=== PATIENT | male | born 1945 | race Caucasian/White ===

== ENCOUNTER 2024-04-04 22:27 | Inpatient (IN) | payer OTHER, MEDICARE, MEDICAID ==
[~2024-04-04] VITALS: Ht 182.9 cm; Wt 100.1 kg
[~2024-04-04 22:27] MED LIST: ALBU2.5V7 NEB; ASPI81TA52 PO; ATOR20TA PO; FLO0.4C PO; LISI20TA28 PO; METO-395 PO
[2024-04-04] MEDS: CefTRIAXone/D5W-Rocephin 1gm 50 ML IV ONE (22:47)
[2024-04-04] MEDS: normal saline 1000ml 1,000 ML IV ONE (22:48)
[2024-04-04 22:55] LABS: BASOPHILS # (AUTO) 0.1 X10'3 (0-0.2); BASOPHILS % (AUTO) 0.2 % (0-1); EOSINOPHILS % (AUTO) 0 % (0-6); HEMATOCRIT 45.2 % (42.0-52.0); HEMOGLOBIN 15.4 g/dl (14.0-17.9); LYMPHOCYTES # (AUTO) 1.4 X10'3 (1.1-4.8); LYMPHOCYTES % (AUTO) 6.5 % (21-51); MEAN CORPUSCULAR HEMOGLOBIN 31.8 PG (27.0-31.0); MEAN CORPUSCULAR HGB CONC 34.2 g/dL (33.0-36.5); MEAN CORPUSCULAR VOLUME 93.1 FL (78-98); MEAN PLATELET VOLUME 8.7 FL (7.4-10.4); MONOCYTES # (AUTO) 2.2 X10'3 (0-0.9); MONOCYTES % (AUTO) 10.2 % (2-12); NEUTROPHILS % (AUTO) 83.1 % (42-75); PLATELET COUNT 299 X10'3 (140-440); RED BLOOD COUNT 4.85 X10'6 (4.70-6.10); RED CELL DISTRIBUTION WIDTH 14.2 % (11.5-14.5); WHITE BLOOD COUNT 21.6 X10'3 (4.5-11.0)
[2024-04-04 23:07] LABS: ALANINE AMINOTRANSFERASE 12 U/L (12-78); ALBUMIN 3.1 G/DL (3.4-5.0); ALBUMIN/GLOBULIN RATIO 0.8 (1.1-1.5); ALKALINE PHOSPHATASE 100 IU/L (46-116); ANION GAP 7 (8-16); ASPARTATE AMINO TRANSFERASE 8 U/L (10-37); BILIRUBIN,TOTAL 1.1 MG/DL (0.1-1.0); BLOOD UREA NITROGEN 29 MG/DL (7-18); BUN/CREATININE RATIO 19.3 (10.0-20.0); CALCIUM 9.5 MG/DL (8.5-10.1); CHLORIDE 99 MMOL/L (99-107); GLUCOSE 151 MG/DL (70-104); POTASSIUM 3.8 MMOL/L (3.5-5.1); SODIUM 136 MMOL/L (135-145); TOTAL CARBON DIOXIDE 30.4 MMOL/L (24-32); TOTAL PROTEIN 7.2 G/DL (6.4-8.2); eCRCL 45 ML/MIN; eGFR 45 ML/MIN
[2024-04-04 23:23] LABS: BILIRUBIN,URINE NEGATIVE (Neg); CLARITY,URINE CLOUDY (Clear); COLOR,URINE YELLOW (Yellow); GLUCOSE, URINE NEGATIVE (Neg); KETONES,URINE TRACE mg/dl (Neg); LEUKOCYTE ESTERASE ,URINE LARGE (Neg); NITRITES, URINE NEGATIVE (Neg); OCCULT BLOOD,URINE TRACE-INTACT (Neg); PROTEIN,URINE 100 mg/dl (Neg); UROBILINOGEN,URINE 0.2 E.U/dL (0.2-1.0)
[2024-04-04 23:34] LABS: UA COLLECTION TYPE FOLEY CATH
[2024-04-04 23:37] LABS: BACTERIA,URINE 4+ /HPF (Neg); RBC,URINE 0-2 /HPF (0-2); SQUAMOUS EPITHELIAL CELL,UR FEW /LPF (FEW); WBC,URINE 50-100 /HPF (0-4)
[2024-04-05] MEDS: normal saline 1000ml 1,000 ML IV ONE (00:04)
[2024-04-05] MEDS: acetaminophen 325mg tablet PO ONE (00:30)
[2024-04-05] MEDS ORDERED: potassium Cl 40MEQ/1/2NS 520ml 520 ML IV PRN (00:35)
[2024-04-05] MEDS ORDERED: magnesium hydroxide 30ml (MOM) UD suspension PO PRN (00:35)
[2024-04-05] MEDS ORDERED: potassium Cl 20 mEq SR tablet PO PRN (00:35)
[2024-04-05] MEDS ORDERED: magnesium sulf-water 4G/100mL 100 ML IV PRN (00:35)
[2024-04-05] MEDS ORDERED: magnesium sulf-water 2g/50mL 50 ML IV PRN (00:35)
[2024-04-05] MEDS ORDERED: ondansetron/PF 4mg/2ml inj IV PRN (00:35)
[2024-04-05] MEDS ORDERED: dextrose 50%-water 50ml dispensing syringe IV PRN ×2 (01:10)
[2024-04-05] MEDS ORDERED: DEXTROSE 15 GM of carb/4 tabs (each vial/BOTTLE has 4 tablets) PO PRN ×2 (01:10)
[2024-04-05] MEDS ORDERED: glucagon, human recombinant 1mg kit SUBCUT PRN (01:10)
[2024-04-05] MEDS: tamsulosin 0.4mg capsule PO SCH (01:13)
[2024-04-05] MEDS: normal saline 1000ml 1,000 ML IV SCH (01:14)
[2024-04-05] MEDS ORDERED: acetaminophen 325mg tablet PO PRN (01:15)
[2024-04-05 02:56] LABS: URINE AMPHETAMINE SCREEN NEGATIVE (Neg); URINE BARBITUATE SCREEN NEGATIVE (Neg); URINE BENZODIAZEPINES SCREEN NEGATIVE (Neg); URINE CANNABINOID SCREEN NEGATIVE (Neg); URINE COCAINE SCREEN NEGATIVE (Neg); URINE METHADONE SCREEN NEGATIVE (Neg); URINE OPIATE SCREEN NEGATIVE (Neg); URINE PHENCYCLIDINE SCREEN NEGATIVE (Neg)
[2024-04-05 03:44] LABS: MAGNESIUM 2.5 MG/DL (1.5-2.4)
[2024-04-05 03:48] LABS: APTT 27 SECONDS (22-32); INR 1.1 INR; PROTHROMBIN TIME 11.6 SECONDS (9.0-12.0)
[2024-04-05 04:04] LABS: HEMOGLOBIN A1C 6.3 % (4.5-6.2)
[2024-04-05] MEDS: INSULIN LISPRO 100 UNIT/ML INSULN.PEN MULTI-DOSE SQ SCH (07:00)
[2024-04-05] MEDS: acetaminophen 325mg tablet PO PRN (07:52)
[2024-04-05] MEDS: heparin, porcine 5000 units/ml vial SQ SCH (07:56)
[2024-04-05] MEDS: K and/or MAG REPLACEMENT MC SCH (07:56)
[2024-04-05] MEDS: docusate sod 100mg capsule PO SCH (07:57)
[2024-04-05] MEDS: normal saline 500ml IV soln 1,000 ML IV ONE (09:00)
[2024-04-05 11:09] LABS: BILIRUBIN,URINE NEGATIVE (Neg); CLARITY,URINE CLOUDY (Clear); COLOR,URINE YELLOW (Yellow); GLUCOSE, URINE NEGATIVE (Neg); KETONES,URINE NEGATIVE (Neg); LEUKOCYTE ESTERASE ,URINE LARGE (Neg); NITRITES, URINE POSITIVE (Neg); OCCULT BLOOD,URINE LARGE (Neg); PH,URINE 6.5 (4.8-8.0); PROTEIN,URINE 100 mg/dl (Neg); UROBILINOGEN,URINE 0.2 E.U/dL (0.2-1.0)
[2024-04-05 11:22] LABS: UA COLLECTION TYPE STRAIGHT CATH
[2024-04-05 11:26] LABS: BACTERIA,URINE 3+ /HPF (Neg); WBC,URINE TNTC /HPF (0-4)
[2024-04-05 11:27] LABS: MUCUS STRANDS NONE SEEN /LPF (Neg); SQUAMOUS EPITHELIAL CELL,UR NONE SEEN /LPF (FEW); WBC CLUMPS,URINE MODERATE /HPF (NEGATIVE)
[2024-04-05 11:37] LABS: CREATINE KINASE 157 U/L (39-308); LIPASE 22 U/L (16-77); PHOSPHORUS 2.9 MG/DL (2.3-4.5); PRO BRAIN NATRIURETIC PEPTIDE 1171 PG/ML (0-450); THYROID STIMULATING HORMONE 0.88 ulU/ml (0.34-4.50)
[2024-04-05 12:06] LABS: OSMOLALITY 294 MOSM/K (280-300)
[2024-04-05] MEDS: ringers solution, lacted 1,000 ML IV ONE (12:11)
[2024-04-05 16:15] VITALS: BP 148/77; PULSE 129; RESP 24; TEMP 98.8; O2SAT 95
[2024-04-05 18:00] VITALS: BP 146/52; PULSE 124; RESP 22; TEMP 97.8; O2SAT 99
[2024-04-05 20:00] VITALS: RESP 22; O2SAT 99
[2024-04-05 22:00] VITALS: BP 148/86; PULSE 139; RESP 20; TEMP 99.3; O2SAT 85
[2024-04-05] MEDS: CefTRIAXone/D5W-Rocephin 1gm 50 ML IV SCH (22:10)
[2024-04-06] VITALS (7 sets, daily range): BP systolic 103–150; BP diastolic 63–84; PULSE 74–127; RESP 16–24; TEMP 98.4–100.1; O2SAT 81–97
[2024-04-06 07:12] LABS: BASOPHILS % (AUTO) 0.4 % (0-1); EOSINOPHILS # (AUTO) 0.1 X10'3 (0-0.9); EOSINOPHILS % (AUTO) 0.6 % (0-6); HEMATOCRIT 35.1 % (42.0-52.0); HEMOGLOBIN 11.9 g/dl (14.0-17.9); LYMPHOCYTES # (AUTO) 1.2 X10'3 (1.1-4.8); LYMPHOCYTES % (AUTO) 10.7 % (21-51); MEAN CORPUSCULAR HEMOGLOBIN 31.9 PG (27.0-31.0); MEAN CORPUSCULAR HGB CONC 33.9 g/dL (33.0-36.5); MEAN CORPUSCULAR VOLUME 93.9 FL (78-98); MEAN PLATELET VOLUME 8.8 FL (7.4-10.4); MONOCYTES % (AUTO) 9.3 % (2-12); NEUTROPHILS # (AUTO) 8.5 X10'3 (1.8-7.7); PLATELET COUNT 172 X10'3 (140-440); RED BLOOD COUNT 3.74 X10'6 (4.70-6.10); RED CELL DISTRIBUTION WIDTH 14.1 % (11.5-14.5); WHITE BLOOD COUNT 10.8 X10'3 (4.5-11.0)
[2024-04-06 08:22] LABS: ALANINE AMINOTRANSFERASE 12 U/L (12-78); ALBUMIN 2.4 G/DL (3.4-5.0); ALBUMIN/GLOBULIN RATIO 0.7 (1.1-1.5); ALKALINE PHOSPHATASE 72 IU/L (46-116); ANION GAP 6 (8-16); ASPARTATE AMINO TRANSFERASE 15 U/L (10-37); BILIRUBIN,TOTAL 0.4 MG/DL (0.1-1.0); BLOOD UREA NITROGEN 19 MG/DL (7-18); BUN/CREATININE RATIO 20.9 (10.0-20.0); CALCIUM 8.5 MG/DL (8.5-10.1); CHLORIDE 107 MMOL/L (99-107); CREATININE 0.91 MG/DL (0.60-1.10); GLUCOSE 107 MG/DL (70-104); MAGNESIUM 1.9 MG/DL (1.5-2.4); POTASSIUM 3.4 MMOL/L (3.5-5.1); SODIUM 141 MMOL/L (135-145); TOTAL CARBON DIOXIDE 27.6 MMOL/L (24-32); TOTAL PROTEIN 5.9 G/DL (6.4-8.2); eCRCL 73 ML/MIN; eGFR 81 ML/MIN
[2024-04-06] MEDS: potassium Cl 20 mEq SR tablet PO PRN (10:38)
[2024-04-06] MEDS: normal saline 1000ml 1,000 ML IV ONE (13:35)
[2024-04-06] MEDS: CefTRIAXone/D5W-Rocephin 1gm 50 ML IV SCH (13:58)
[2024-04-07] MEDS: LORazepam 1 MG tablet PO PRN (00:29)
[2024-04-07 06:00] VITALS: BP 121/63; PULSE 130; RESP 22; TEMP 97.2; O2SAT 88
[2024-04-07 06:46] LABS: BASOPHILS % (AUTO) 0.6 % (0-1); EOSINOPHILS # (AUTO) 0.1 X10'3 (0-0.9); EOSINOPHILS % (AUTO) 0.9 % (0-6); HEMATOCRIT 35.5 % (42.0-52.0); HEMOGLOBIN 12.1 g/dl (14.0-17.9); LYMPHOCYTES # (AUTO) 0.8 X10'3 (1.1-4.8); LYMPHOCYTES % (AUTO) 10.3 % (21-51); MEAN CORPUSCULAR HEMOGLOBIN 32.2 PG (27.0-31.0); MEAN CORPUSCULAR HGB CONC 34.2 g/dL (33.0-36.5); MEAN CORPUSCULAR VOLUME 94.2 FL (78-98); MEAN PLATELET VOLUME 8.7 FL (7.4-10.4); MONOCYTES % (AUTO) 12.9 % (2-12); NEUTROPHILS % (AUTO) 75.3 % (42-75); PLATELET COUNT 187 X10'3 (140-440); RED BLOOD COUNT 3.77 X10'6 (4.70-6.10); RED CELL DISTRIBUTION WIDTH 14.3 % (11.5-14.5)
[2024-04-07 07:18] LABS: ALANINE AMINOTRANSFERASE 25 U/L (12-78); ALBUMIN 2.3 G/DL (3.4-5.0); ALBUMIN/GLOBULIN RATIO 0.6 (1.1-1.5); ALKALINE PHOSPHATASE 72 IU/L (46-116); ANION GAP 11 (8-16); ASPARTATE AMINO TRANSFERASE 25 U/L (10-37); BILIRUBIN,TOTAL 0.3 MG/DL (0.1-1.0); BLOOD UREA NITROGEN 14 MG/DL (7-18); BUN/CREATININE RATIO 18.7 (10.0-20.0); CALCIUM 8.7 MG/DL (8.5-10.1); CHLORIDE 104 MMOL/L (99-107); CREATININE 0.75 MG/DL (0.60-1.10); GLUCOSE 126 MG/DL (70-104); MAGNESIUM 1.9 MG/DL (1.5-2.4); POTASSIUM 4.1 MMOL/L (3.5-5.1); SODIUM 140 MMOL/L (135-145); eCRCL 89 ML/MIN; eGFR > 90 ML/MIN
[2024-04-07] MEDS: aspirin 81mg, enteric-coated 1 TAB TABLET.DR PO SCH (09:10)
[2024-04-07] MEDS: atorvastatin 20mg tablet PO SCH (09:10)
[2024-04-07] MEDS: lisinopril 20mg tablet PO SCH (09:10)
[2024-04-07 10:00] VITALS: BP 145/82; PULSE 125; RESP 18; TEMP 98.2; O2SAT 91
[2024-04-07 16:13] LABS: D-DIMER 1.82 MG/L FEU (0-0.50)
[2024-04-07] MEDS: ringers solution, lacted 1,000 ML IV ONE (16:54)
[2024-04-07 18:30] VITALS: BP 116/66; PULSE 101; RESP 16; TEMP 98; O2SAT 98
[2024-04-08 06:00] VITALS: BP 125/74; PULSE 109; RESP 16; TEMP 97.3; O2SAT 97
[2024-04-08 06:30] LABS: BASOPHILS # (AUTO) 0.1 X10'3 (0-0.2); BASOPHILS % (AUTO) 0.8 % (0-1); EOSINOPHILS # (AUTO) 0.3 X10'3 (0-0.9); EOSINOPHILS % (AUTO) 3.9 % (0-6); HEMOGLOBIN 11.4 g/dl (14.0-17.9); LYMPHOCYTES # (AUTO) 1.1 X10'3 (1.1-4.8); LYMPHOCYTES % (AUTO) 14.5 % (21-51); MEAN CORPUSCULAR HEMOGLOBIN 31.7 PG (27.0-31.0); MEAN CORPUSCULAR HGB CONC 33.6 g/dL (33.0-36.5); MEAN CORPUSCULAR VOLUME 94.4 FL (78-98); MEAN PLATELET VOLUME 8.5 FL (7.4-10.4); MONOCYTES # (AUTO) 0.9 X10'3 (0-0.9); MONOCYTES % (AUTO) 12.8 % (2-12); PLATELET COUNT 190 X10'3 (140-440); RED CELL DISTRIBUTION WIDTH 13.7 % (11.5-14.5); WHITE BLOOD COUNT 7.3 X10'3 (4.5-11.0)
[2024-04-08 06:43] LABS: ALANINE AMINOTRANSFERASE 40 U/L (12-78); ALBUMIN 2.2 G/DL (3.4-5.0); ALBUMIN/GLOBULIN RATIO 0.6 (1.1-1.5); ALKALINE PHOSPHATASE 71 IU/L (46-116); ANION GAP 2 (8-16); ASPARTATE AMINO TRANSFERASE 37 U/L (10-37); BILIRUBIN,TOTAL 0.3 MG/DL (0.1-1.0); BLOOD UREA NITROGEN 15 MG/DL (7-18); BUN/CREATININE RATIO 22.1 (10.0-20.0); CALCIUM 8.5 MG/DL (8.5-10.1); CHLORIDE 105 MMOL/L (99-107); CREATININE 0.68 MG/DL (0.60-1.10); GLUCOSE 117 MG/DL (70-104); MAGNESIUM 1.8 MG/DL (1.5-2.4); POTASSIUM 3.9 MMOL/L (3.5-5.1); SODIUM 139 MMOL/L (135-145); TOTAL CARBON DIOXIDE 31.8 MMOL/L (24-32); TOTAL PROTEIN 5.8 G/DL (6.4-8.2); eCRCL 98 ML/MIN; eGFR > 90 ML/MIN
[2024-04-08 08:01] VITALS: RESP 18
[2024-04-08 11:00] VITALS: BP 108/59; PULSE 111; RESP 18; TEMP 98.1; O2SAT 90
[2024-04-08 18:00] VITALS: BP 102/58; PULSE 115; RESP 24; TEMP 97.9; O2SAT 91
[2024-04-08 20:00] VITALS: RESP 24; O2SAT 91
[2024-04-08 22:00] VITALS: BP 127/72; PULSE 124; RESP 20; TEMP 98.4; O2SAT 90
[2024-04-09 05:59] LABS: BASOPHILS # (AUTO) 0.1 X10'3 (0-0.2); BASOPHILS % (AUTO) 0.6 % (0-1); EOSINOPHILS # (AUTO) 0.2 X10'3 (0-0.9); EOSINOPHILS % (AUTO) 2.4 % (0-6); LYMPHOCYTES # (AUTO) 1.3 X10'3 (1.1-4.8); LYMPHOCYTES % (AUTO) 16.2 % (21-51); MEAN CORPUSCULAR HGB CONC 34.2 g/dL (33.0-36.5); MEAN CORPUSCULAR VOLUME 93.6 FL (78-98); MEAN PLATELET VOLUME 8.5 FL (7.4-10.4); MONOCYTES # (AUTO) 1.1 X10'3 (0-0.9); MONOCYTES % (AUTO) 13.2 % (2-12); NEUTROPHILS # (AUTO) 5.5 X10'3 (1.8-7.7); NEUTROPHILS % (AUTO) 67.6 % (42-75); PLATELET COUNT 197 X10'3 (140-440); RED BLOOD COUNT 3.74 X10'6 (4.70-6.10); RED CELL DISTRIBUTION WIDTH 13.8 % (11.5-14.5); WHITE BLOOD COUNT 8.2 X10'3 (4.5-11.0)
[2024-04-09 06:00] VITALS: BP 114/63; PULSE 109; RESP 18; TEMP 97.5; O2SAT 90
[2024-04-09 06:15] LABS: ALBUMIN 2.4 G/DL (3.4-5.0); ALBUMIN/GLOBULIN RATIO 0.7 (1.1-1.5); ANION GAP 3 (8-16); ASPARTATE AMINO TRANSFERASE 34 U/L (10-37); BILIRUBIN,TOTAL 0.3 MG/DL (0.1-1.0); BLOOD UREA NITROGEN 14 MG/DL (7-18); BUN/CREATININE RATIO 17.1 (10.0-20.0); CHLORIDE 105 MMOL/L (99-107); CREATININE 0.82 MG/DL (0.60-1.10); GLUCOSE 138 MG/DL (70-104); MAGNESIUM 1.8 MG/DL (1.5-2.4); POTASSIUM 3.8 MMOL/L (3.5-5.1); SODIUM 140 MMOL/L (135-145); TOTAL CARBON DIOXIDE 32.2 MMOL/L (24-32); eCRCL 81 ML/MIN; eGFR > 90 ML/MIN
[2024-04-09 06:16] LABS: ALANINE AMINOTRANSFERASE 59 U/L (12-78); ALKALINE PHOSPHATASE 80 IU/L (46-116)
[2024-04-09 08:00] VITALS: RESP 18; O2SAT 90
[2024-04-09 18:00] VITALS: BP 114/70; PULSE 100; RESP 23; TEMP 97.1; O2SAT 91
[2024-04-09] MEDS: carVEDilol 3.125mg tablet PO SCH (21:51)
[2024-04-09 22:00] VITALS: BP 139/66; PULSE 110; RESP 18; TEMP 98.5; O2SAT 90
[2024-04-10 06:00] VITALS: BP 141/88; PULSE 110; RESP 18; TEMP 98; O2SAT 90
[2024-04-10 06:31] LABS: BASOPHILS # (AUTO) 0.1 X10'3 (0-0.2); BASOPHILS % (AUTO) 0.8 % (0-1); EOSINOPHILS # (AUTO) 0.4 X10'3 (0-0.9); EOSINOPHILS % (AUTO) 4.4 % (0-6); HEMATOCRIT 37.8 % (42.0-52.0); HEMOGLOBIN 12.7 g/dl (14.0-17.9); LYMPHOCYTES # (AUTO) 1.4 X10'3 (1.1-4.8); LYMPHOCYTES % (AUTO) 14.2 % (21-51); MEAN CORPUSCULAR HEMOGLOBIN 31.8 PG (27.0-31.0); MEAN CORPUSCULAR HGB CONC 33.7 g/dL (33.0-36.5); MEAN CORPUSCULAR VOLUME 94.2 FL (78-98); MEAN PLATELET VOLUME 8.7 FL (7.4-10.4); MONOCYTES # (AUTO) 1.1 X10'3 (0-0.9); MONOCYTES % (AUTO) 11.2 % (2-12); NEUTROPHILS # (AUTO) 6.7 X10'3 (1.8-7.7); NEUTROPHILS % (AUTO) 69.4 % (42-75); PLATELET COUNT 256 X10'3 (140-440); RED BLOOD COUNT 4.01 X10'6 (4.70-6.10); RED CELL DISTRIBUTION WIDTH 14.1 % (11.5-14.5); WHITE BLOOD COUNT 9.6 X10'3 (4.5-11.0)
[2024-04-10 06:45] LABS: ALANINE AMINOTRANSFERASE 55 U/L (12-78); ALBUMIN 2.6 G/DL (3.4-5.0); ALBUMIN/GLOBULIN RATIO 0.7 (1.1-1.5); ALKALINE PHOSPHATASE 98 IU/L (46-116); ANION GAP 5 (8-16); ASPARTATE AMINO TRANSFERASE 20 U/L (10-37); BILIRUBIN,TOTAL 0.2 MG/DL (0.1-1.0); BLOOD UREA NITROGEN 12 MG/DL (7-18); BUN/CREATININE RATIO 17.4 (10.0-20.0); CALCIUM 9.3 MG/DL (8.5-10.1); CHLORIDE 105 MMOL/L (99-107); CREATININE 0.69 MG/DL (0.60-1.10); GLUCOSE 134 MG/DL (70-104); POTASSIUM 3.5 MMOL/L (3.5-5.1); SODIUM 144 MMOL/L (135-145); TOTAL CARBON DIOXIDE 33.9 MMOL/L (24-32); TOTAL PROTEIN 6.3 G/DL (6.4-8.2); eCRCL 97 ML/MIN; eGFR > 90 ML/MIN
[2024-04-10] MEDS ORDERED: CARV-164 PO (07:16)
[2024-04-10] MEDS ORDERED: CIPR-202 PO (07:16)
[2024-04-10 08:00] VITALS: RESP 18; O2SAT 90
[2024-04-10] MEDS: carVEDilol 3.125mg tablet PO STA ×2 (08:08→10:37)
[2024-04-10 10:00] VITALS: BP 115/71; PULSE 112; RESP 17; TEMP 98.7; O2SAT 90
[2024-04-10 10:30] VITALS: BP 106/66; PULSE 109; RESP 18; O2SAT 92
[2024-04-11] MEDS ORDERED: FLO0.4C PO (09:27)
== END 2024-04-10 15:30 | DRG 698 ==
LOC: ER 22:27 → MERGE 04-05 00:35 → ED HOLD 04-05 00:35 → ORTHO 4S 04-05 16:15
PROVIDERS: ADMIT Internal Medicine Critical Care Medicine; ATTEND Family Medicine
PROC: BW251ZZ Computerized Tomography (CT Scan) of Chest, Abdomen and Pelvis using Low Osmolar Contrast (ICD-10-PCS; principal; 2024-04-05)
DX: T83.518A Infection and inflammatory reaction due to other urinary catheter, initial encounter (principal); A41.9 Sepsis, unspecified organism; G93.41 Metabolic encephalopathy; N17.9 Acute kidney failure, unspecified; N13.6 Pyonephrosis; E11.22 Type 2 diabetes mellitus with diabetic chronic kidney disease; I12.9 Hypertensive chronic kidney disease with stage 1 through stage 4 chronic kidney disease, or unspecified chronic kidney disease; N18.9 Chronic kidney disease, unspecified; J44.9 Chronic obstructive pulmonary disease, unspecified; N40.0 Benign prostatic hyperplasia without lower urinary tract symptoms; I25.10 Atherosclerotic heart disease of native coronary artery without angina pectoris; E86.0 Dehydration; Y83.8 Other surgical procedures as the cause of abnormal reaction of the patient, or of later complication, without mention of misadventure at the time of the procedure; Y92.89 Other specified places as the place of occurrence of the external cause; Z79.82 Long term (current) use of aspirin; Z79.899 Other long term (current) drug therapy; I25.2 Old myocardial infarction; Z99.81 Dependence on supplemental oxygen
CPT/HCPCS: 36415; 71045; 71250; 74176; 76700; 76857; 80053; 80305; 81001; 82550; 82948; 83036; 83605; 83690; 83735; 83880; 83930; 84100; 84132; 84145; 84443; 84484; 85025; 85379; 85610; 85730; 87040; 87077; 87081; 87088; 87186; 93005; 97110; 97116; 97161; 97530; 99291; A4314; A4620; A5200; A6258; A6449; G0378; J0696; J1644; J1815; J7030; J7040; J7120

== ENCOUNTER 2024-04-17 08:30 | Inpatient (IN) | payer OTHER, MEDICARE, MEDICAID ==
[~2024-04-17] VITALS: Ht 180.3 cm; Wt 98.0 kg
[~2024-04-17 08:30] MED LIST changes: -ALBU2.5V7 NEB; +CARV-164 PO; +LEVO-65 PO; +LISI10TA27 PO; -LISI20TA28 PO; -METO-395 PO; +PRED10TA23 PO
[2024-04-17 09:44] LABS: ABG BASE EXCESS 0.8 mmol/L (-2.0-3.0); ABG HCO3 24.6 mmol/L (21.0-28.0); ABG OXYGEN SATURATION 87.5 % (94.0-98.0); ABG PCO2 (T) 38.5 mmHg (35.0-48.0); ABG PH (T) 7.429 (7.350-7.450); ABG PO2 (T) 54.3 mmHg (83.0-108.0); ALLEN'S TEST POSITIVE; FCOHb 1.1 % (0.5-1.5); FHHb 12.3 % (0.0-5.0); FLOW 4 L/min; FMetHb 0.3 % (0.0-1.5); FO2Hb 86.3 % (94.0-98.0); MODE NASAL CANNULA; PATIENT TEMPERATURE 38.1; TOTAL HEMOGLOBIN 12.9 G/dl (13.5-17.5)
[2024-04-17 10:07] LABS: BASOPHILS # (AUTO) 0.1 X10'3 (0-0.2); BASOPHILS % (AUTO) 0.7 % (0-1); EOSINOPHILS # (AUTO) 0.2 X10'3 (0-0.9); EOSINOPHILS % (AUTO) 2.1 % (0-6); HEMOGLOBIN 14.2 g/dl (14.0-17.9); LYMPHOCYTES # (AUTO) 0.6 X10'3 (1.1-4.8); LYMPHOCYTES % (AUTO) 6.5 % (21-51); MEAN CORPUSCULAR HEMOGLOBIN 32.3 PG (27.0-31.0); MEAN CORPUSCULAR HGB CONC 34.7 g/dL (33.0-36.5); MEAN PLATELET VOLUME 8.4 FL (7.4-10.4); MONOCYTES # (AUTO) 0.8 X10'3 (0-0.9); MONOCYTES % (AUTO) 9.6 % (2-12); NEUTROPHILS # (AUTO) 6.9 X10'3 (1.8-7.7); NEUTROPHILS % (AUTO) 81.1 % (42-75); PLATELET COUNT 289 X10'3 (140-440); WHITE BLOOD COUNT 8.5 X10'3 (4.5-11.0)
[2024-04-17] MEDS: piperacillin/tazo 3.375gm/50ml 50 ML IV ONE (10:28)
[2024-04-17 10:41] LABS: ALBUMIN 3.2 G/DL (3.4-5.0); ANION GAP 7 (8-16); BLOOD UREA NITROGEN 13 MG/DL (7-18); BUN/CREATININE RATIO 15.3 (10.0-20.0); CALCIUM 9.8 MG/DL (8.5-10.1); CHLORIDE 101 MMOL/L (99-107); CREATININE 0.85 MG/DL (0.60-1.10); GLUCOSE 142 MG/DL (70-104); POTASSIUM 3.6 MMOL/L (3.5-5.1); PRO BRAIN NATRIURETIC PEPTIDE 5510 PG/ML (0-450); SODIUM 139 MMOL/L (135-145); TOTAL CARBON DIOXIDE 31.4 MMOL/L (24-32); eCRCL 76 ML/MIN; eGFR 87 ML/MIN
[2024-04-17] MEDS ORDERED: VANCOMYCIN 2GM/400ML H20 (PEG) 400 ML IV ONE (10:45)
[2024-04-17] MEDS ORDERED: potassium Cl 40MEQ/1/2NS 520ml 520 ML IV PRN (11:00)
[2024-04-17] MEDS ORDERED: potassium Cl 20 mEq SR tablet PO PRN ×2 (11:00)
[2024-04-17] MEDS ORDERED: acetaminophen 325mg tablet PO PRN (11:00)
[2024-04-17] MEDS ORDERED: magnesium sulf-water 2g/50mL 50 ML IV PRN (11:00)
[2024-04-17] MEDS ORDERED: magnesium Cl slow-release 64mg tablet PO PRN (11:00)
[2024-04-17] MEDS ORDERED: ondansetron/PF 4mg/2ml inj IV PRN (11:00)
[2024-04-17] MEDS ORDERED: magnesium sulf-water 4G/100mL 100 ML IV PRN (11:00)
[2024-04-17] MEDS ORDERED: albuterol 2.5 MG/3 ML nebule NEB SCH (12:00)
[2024-04-17 13:00] VITALS: BP 113/67; PULSE 107; RESP 20; RESP 24; TEMP 99.3; O2SAT 95
[2024-04-17 13:00] LABS: BILIRUBIN,URINE NEGATIVE (Neg); CLARITY,URINE CLEAR (Clear); COLOR,URINE YELLOW (Yellow); GLUCOSE, URINE 100 mg/dl (Neg); KETONES,URINE NEGATIVE (Neg); LEUKOCYTE ESTERASE ,URINE NEGATIVE (Neg); NITRITES, URINE NEGATIVE (Neg); OCCULT BLOOD,URINE TRACE-INTACT (Neg); PROTEIN,URINE NEGATIVE (Neg); UROBILINOGEN,URINE 0.2 E.U/dL (0.2-1.0)
[2024-04-17 13:01] LABS: UA COLLECTION TYPE FOLEY CATH
[2024-04-17 13:09] LABS: RBC,URINE 0-2 /HPF (0-2); WBC,URINE 0-4 /HPF (0-4)
[2024-04-17 13:10] LABS: BACTERIA,URINE NONE SEEN /HPF (Neg); MUCUS STRANDS FEW /LPF (Neg); SQUAMOUS EPITHELIAL CELL,UR NONE SEEN /LPF (FEW)
[2024-04-17 15:00] VITALS: BP 113/67; PULSE 98; RESP 22; TEMP 98.7; O2SAT 96
[2024-04-17] MEDS: methylPREDNISolone sod succ 125mg/2ml vial IV SCH (15:28)
[2024-04-17] MEDS: acetaminophen 325mg tablet PO SCH (16:00)
[2024-04-17 18:00] VITALS: BP 127/68; PULSE 101; RESP 18; TEMP 97.6; O2SAT 94
[2024-04-17] MEDS: normal saline 1000ml 1,000 ML IV SCH (19:34)
[2024-04-17] MEDS: heparin, porcine 5000 units/ml vial SQ SCH (19:38)
[2024-04-17 20:30] VITALS: RESP 18; O2SAT 94
[2024-04-17 22:00] VITALS: BP 127/68; PULSE 96; RESP 23; TEMP 97.9; O2SAT 92
[2024-04-17 23:24] VITALS: PULSE 95; RESP 20; O2SAT 92
[2024-04-18] VITALS (13 sets, daily range): BP systolic 93–137; BP diastolic 56–82; PULSE 78–98; RESP 12–23; TEMP 96.7–98.6; O2SAT 90–96
[2024-04-18] MEDS ORDERED: albuterol 2.5 MG/3 ML nebule NEB PRN
[2024-04-18] MEDS: ipratropium/albuterol 3ml nebule NEB SCH (03:06)
[2024-04-18 06:42] LABS: ALANINE AMINOTRANSFERASE 29 U/L (12-78); ALBUMIN 2.5 G/DL (3.4-5.0); ALBUMIN/GLOBULIN RATIO 0.6 (1.1-1.5); ALKALINE PHOSPHATASE 69 IU/L (46-116); ANION GAP 5 (8-16); ASPARTATE AMINO TRANSFERASE 18 U/L (10-37); BILIRUBIN,TOTAL 0.3 MG/DL (0.1-1.0); BLOOD UREA NITROGEN 21 MG/DL (7-18); BUN/CREATININE RATIO 23.1 (10.0-20.0); CALCIUM 8.9 MG/DL (8.5-10.1); CHLORIDE 102 MMOL/L (99-107); CREATININE 0.91 MG/DL (0.60-1.10); GLUCOSE 184 MG/DL (70-104); POTASSIUM 3.8 MMOL/L (3.5-5.1); SODIUM 139 MMOL/L (135-145); TOTAL PROTEIN 6.4 G/DL (6.4-8.2); eCRCL 71 ML/MIN; eGFR 81 ML/MIN
[2024-04-18 07:09] LABS: BASOPHILS % (AUTO) 0.6 % (0-1); EOSINOPHILS % (AUTO) 0.1 % (0-6); HEMATOCRIT 35.2 % (42.0-52.0); HEMOGLOBIN 11.7 g/dl (14.0-17.9); LYMPHOCYTES # (AUTO) 0.3 X10'3 (1.1-4.8); LYMPHOCYTES % (AUTO) 6.5 % (21-51); MEAN CORPUSCULAR HEMOGLOBIN 31.1 PG (27.0-31.0); MEAN CORPUSCULAR HGB CONC 33.3 g/dL (33.0-36.5); MEAN CORPUSCULAR VOLUME 93.4 FL (78-98); MONOCYTES # (AUTO) 0.2 X10'3 (0-0.9); MONOCYTES % (AUTO) 4.5 % (2-12); NEUTROPHILS # (AUTO) 4.1 X10'3 (1.8-7.7); NEUTROPHILS % (AUTO) 88.3 % (42-75); PLATELET COUNT 253 X10'3 (140-440); RED BLOOD COUNT 3.76 X10'6 (4.70-6.10); RED CELL DISTRIBUTION WIDTH 14.4 % (11.5-14.5); WHITE BLOOD COUNT 4.6 X10'3 (4.5-11.0)
[2024-04-18] MEDS: CefTRIAXone 2gm/D5W 50ml BAG 50 ML IV SCH (08:22)
[2024-04-18] MEDS: methylPREDNISolone sod succ/PF 40mg inj. IV SCH (21:20)
[2024-04-19] VITALS (17 sets, daily range): BP systolic 101–124; BP diastolic 50–65; PULSE 79–93; RESP 12–22; TEMP 96.8–98; O2SAT 90–96
[2024-04-19 06:44] LABS: BASOPHILS % (AUTO) 0.1 % (0-1); EOSINOPHILS % (AUTO) 0 % (0-6); HEMATOCRIT 34.1 % (42.0-52.0); HEMOGLOBIN 11.4 g/dl (14.0-17.9); LYMPHOCYTES # (AUTO) 0.5 X10'3 (1.1-4.8); LYMPHOCYTES % (AUTO) 7.4 % (21-51); MEAN CORPUSCULAR HEMOGLOBIN 31.3 PG (27.0-31.0); MEAN CORPUSCULAR HGB CONC 33.4 g/dL (33.0-36.5); MEAN CORPUSCULAR VOLUME 93.6 FL (78-98); MEAN PLATELET VOLUME 8.4 FL (7.4-10.4); MONOCYTES # (AUTO) 0.7 X10'3 (0-0.9); NEUTROPHILS # (AUTO) 6.1 X10'3 (1.8-7.7); NEUTROPHILS % (AUTO) 83.5 % (42-75); PLATELET COUNT 272 X10'3 (140-440); RED BLOOD COUNT 3.64 X10'6 (4.70-6.10); RED CELL DISTRIBUTION WIDTH 14.3 % (11.5-14.5); WHITE BLOOD COUNT 7.3 X10'3 (4.5-11.0)
[2024-04-19 07:03] LABS: ALANINE AMINOTRANSFERASE 32 U/L (12-78); ALBUMIN 2.7 G/DL (3.4-5.0); ALBUMIN/GLOBULIN RATIO 0.8 (1.1-1.5); ALKALINE PHOSPHATASE 62 IU/L (46-116); ANION GAP 0 (8-16); ASPARTATE AMINO TRANSFERASE 13 U/L (10-37); BILIRUBIN,TOTAL 0.2 MG/DL (0.1-1.0); BLOOD UREA NITROGEN 24 MG/DL (7-18); BUN/CREATININE RATIO 28.9 (10.0-20.0); CALCIUM 9.2 MG/DL (8.5-10.1); CHLORIDE 105 MMOL/L (99-107); CREATININE 0.83 MG/DL (0.60-1.10); GLUCOSE 136 MG/DL (70-104); POTASSIUM 4.3 MMOL/L (3.5-5.1); SODIUM 142 MMOL/L (135-145); TOTAL PROTEIN 6.3 G/DL (6.4-8.2); eCRCL 78 ML/MIN; eGFR 90 ML/MIN
[2024-04-20] VITALS (7 sets, daily range): BP systolic 90–133; BP diastolic 52–78; PULSE 65–87; RESP 17–22; TEMP 97.6–97.9; O2SAT 93–97
[2024-04-20 08:35] LABS: BASOPHILS % (AUTO) 0 % (0-1); EOSINOPHILS % (AUTO) 0 % (0-6); HEMATOCRIT 34.6 % (42.0-52.0); HEMOGLOBIN 11.5 g/dl (14.0-17.9); LYMPHOCYTES # (AUTO) 0.5 X10'3 (1.1-4.8); LYMPHOCYTES % (AUTO) 8.7 % (21-51); MEAN CORPUSCULAR HEMOGLOBIN 31.3 PG (27.0-31.0); MEAN CORPUSCULAR HGB CONC 33.3 g/dL (33.0-36.5); MEAN CORPUSCULAR VOLUME 93.9 FL (78-98); MONOCYTES # (AUTO) 0.5 X10'3 (0-0.9); MONOCYTES % (AUTO) 9.1 % (2-12); NEUTROPHILS # (AUTO) 4.3 X10'3 (1.8-7.7); NEUTROPHILS % (AUTO) 82.2 % (42-75); PLATELET COUNT 261 X10'3 (140-440); RED BLOOD COUNT 3.69 X10'6 (4.70-6.10); RED CELL DISTRIBUTION WIDTH 14.7 % (11.5-14.5); WHITE BLOOD COUNT 5.3 X10'3 (4.5-11.0)
[2024-04-20 08:55] LABS: ALANINE AMINOTRANSFERASE 34 U/L (12-78); ALBUMIN 2.5 G/DL (3.4-5.0); ALBUMIN/GLOBULIN RATIO 0.7 (1.1-1.5); ALKALINE PHOSPHATASE 70 IU/L (46-116); ANION GAP 2 (8-16); ASPARTATE AMINO TRANSFERASE 22 U/L (10-37); BILIRUBIN,TOTAL 0.2 MG/DL (0.1-1.0); BLOOD UREA NITROGEN 20 MG/DL (7-18); CALCIUM 9.6 MG/DL (8.5-10.1); CHLORIDE 103 MMOL/L (99-107); CREATININE 0.74 MG/DL (0.60-1.10); GLUCOSE 151 MG/DL (70-104); POTASSIUM 4.2 MMOL/L (3.5-5.1); SODIUM 139 MMOL/L (135-145); TOTAL CARBON DIOXIDE 33.8 MMOL/L (24-32); TOTAL PROTEIN 6.2 G/DL (6.4-8.2); eCRCL 88 ML/MIN; eGFR > 90 ML/MIN
== END 2024-04-20 13:45 | DRG 189 ==
LOC: ER 08:30 → PCU 3S 10:59
PROVIDERS: ADMIT Internal Medicine; ATTEND Internal Medicine
DX: J96.20 Acute and chronic respiratory failure, unspecified whether with hypoxia or hypercapnia (principal); J44.1 Chronic obstructive pulmonary disease with (acute) exacerbation; Z20.822 Contact with and (suspected) exposure to COVID-19; N13.8 Other obstructive and reflux uropathy; N30.00 Acute cystitis without hematuria; J98.11 Atelectasis; N30.20 Other chronic cystitis without hematuria; Z66 Do not resuscitate; F03.A0 Unspecified dementia, mild, without behavioral disturbance, psychotic disturbance, mood disturbance, and anxiety; E11.9 Type 2 diabetes mellitus without complications; N40.1 Benign prostatic hyperplasia with lower urinary tract symptoms; Y95 Nosocomial condition; Z99.81 Dependence on supplemental oxygen; Z79.899 Other long term (current) drug therapy; Z88.8 Allergy status to other drugs, medicaments and biological substances
CPT/HCPCS: 36415; 36600; 71045; 74018; 80048; 80053; 81001; 82803; 83605; 83880; 84145; 84484; 85018; 85025; 87040; 87081; 93005; 94640; 94760; 96365; 97116; 97162; 97530; 99285; A4314; A5200; G0378; J0696; J1644; J2543; J2919; J7030; J7042

== ENCOUNTER 2024-04-25 01:45 | Emergency (ER) | payer OTHER, MEDICARE, MEDICAID ==
[~2024-04-25] VITALS: Ht 182.9 cm; Wt 90.9 kg
[~2024-04-25 01:45] MED LIST changes: -LEVO-65 PO; -PRED10TA23 PO
[2024-04-25] MEDS: LidoCAINE 2% Topical Jelly 11mL syringe (UROJET) TOP ONE ×2 (02:10→03:56)
[2024-04-25 02:40] VITALS: TEMP 98.1
[2024-04-25] MEDS ORDERED: traMADol 50MG tablet PO ONE (02:40)
[2024-04-25] MEDS: traMADol 50MG tablet PO ONE ×2 (03:31→03:34)
[2024-04-25] MEDS: acetaminophen 325mg tablet PO ONE (03:32)
[2024-04-25] MEDS: LIDOcaine 2% Viscous 15ml cup MM ONE (03:32)
[2024-04-25 03:57] VITALS: BP 123/70; PULSE 90; RESP 16; O2SAT 95
== END 2024-04-25 04:25 ==
LOC: ER 01:45
DX: R33.9 Retention of urine, unspecified (principal); J44.9 Chronic obstructive pulmonary disease, unspecified; Z88.8 Allergy status to other drugs, medicaments and biological substances
CPT/HCPCS: 51702; 99284; A4314; A4338; A4346; A4355; A5200

== ENCOUNTER 2024-05-29 21:25 | Inpatient (IN) | payer OTHER, MEDICARE, MEDICAID ==
[~2024-05-29] VITALS: Ht 167.6 cm; Wt 90.9 kg
[~2024-05-29 21:25] MED LIST changes: -FLO0.4C PO
[2024-05-29] MEDS ORDERED: FLO0.4C PO (22:15)
[2024-05-29] MEDS ORDERED: BUDE10.22 INH (22:15)
[2024-05-29] MEDS ORDERED: ALB0.5UD NEB (22:15)
[2024-05-29] MEDS ORDERED: IPRA3AMP31 NEB (22:15)
[2024-05-29] MEDS: normal saline 1000ml 1,000 ML IV ONE (22:27)
[2024-05-29] MEDS: ondansetron/PF 4mg/2ml inj IV ONE (22:27)
[2024-05-29] MEDS: loperamide 2mg capsule PO ONE (22:27)
[2024-05-29 22:51] LABS: BASOPHILS # (AUTO) 0.1 X10'3 (0-0.2); BASOPHILS % (AUTO) 0.3 % (0-1); EOSINOPHILS % (AUTO) 0.1 % (0-6); HEMOGLOBIN 14.2 g/dl (14.0-17.9); LYMPHOCYTES # (AUTO) 1.1 X10'3 (1.1-4.8); MEAN CORPUSCULAR HEMOGLOBIN 31.6 PG (27.0-31.0); MEAN CORPUSCULAR HGB CONC 33.8 g/dL (33.0-36.5); MEAN CORPUSCULAR VOLUME 93.4 FL (78-98); MEAN PLATELET VOLUME 8.9 FL (7.4-10.4); MONOCYTES # (AUTO) 2.1 X10'3 (0-0.9); MONOCYTES % (AUTO) 7.9 % (2-12); NEUTROPHILS # (AUTO) 23.7 X10'3 (1.8-7.7); NEUTROPHILS % (AUTO) 87.7 % (42-75); PLATELET COUNT 339 X10'3 (140-440); RED CELL DISTRIBUTION WIDTH 15.3 % (11.5-14.5)
[2024-05-29 23:04] LABS: ALANINE AMINOTRANSFERASE 28 U/L (12-78); ALBUMIN 3.8 G/DL (3.4-5.0); ALKALINE PHOSPHATASE 124 IU/L (46-116); ANION GAP 4 (8-16); ASPARTATE AMINO TRANSFERASE 9 U/L (10-37); BILIRUBIN,TOTAL 0.6 MG/DL (0.1-1.0); BLOOD UREA NITROGEN 29 MG/DL (7-18); BUN/CREATININE RATIO 25.7 (10.0-20.0); CALCIUM 9.6 MG/DL (8.5-10.1); CHLORIDE 103 MMOL/L (99-107); CREATININE 1.13 MG/DL (0.60-1.10); GLUCOSE 234 MG/DL (70-104); LIPASE 17 U/L (16-77); POTASSIUM 4.6 MMOL/L (3.5-5.1); SODIUM 138 MMOL/L (135-145); TOTAL CARBON DIOXIDE 30.6 MMOL/L (24-32); TOTAL PROTEIN 7.5 G/DL (6.4-8.2); eCRCL 59 ML/MIN; eGFR 63 ML/MIN
[2024-05-29] MEDS: LidoCAINE 2% Topical Jelly 11mL syringe (UROJET) TOP ONE (23:22)
[2024-05-29 23:23] LABS: BILIRUBIN,URINE NEGATIVE (Neg); CLARITY,URINE CLOUDY (Clear); GLUCOSE, URINE NEGATIVE (Neg); KETONES,URINE TRACE mg/dl (Neg); LEUKOCYTE ESTERASE ,URINE LARGE (Neg); NITRITES, URINE NEGATIVE (Neg); OCCULT BLOOD,URINE LARGE (Neg); PH,URINE 8.5 (4.8-8.0); PROTEIN,URINE >=300 mg/dl (Neg); UROBILINOGEN,URINE 0.2 E.U/dL (0.2-1.0)
[2024-05-29 23:24] LABS: COLOR,URINE DARK YELLOW (Yellow); UA COLLECTION TYPE NON-SPECIFIED
[2024-05-29 23:29] LABS: NUCLEATED RED BLOOD CELLS 1 /100WBC (0-0); TOTAL CELLS COUNTED 100
[2024-05-29 23:32] LABS: BACTERIA,URINE 4+ /HPF (Neg); RBC,URINE 50-100 /HPF (0-2); SQUAMOUS EPITHELIAL CELL,UR FEW /LPF (FEW); WBC,URINE TNTC /HPF (0-4)
[2024-05-29] MEDS: CefTRIAXone 2gm/D5W 50ml BAG 50 ML IV ONE (23:36)
[2024-05-30] VITALS (15 sets, daily range): BP systolic 91–111; BP diastolic 52–62; PULSE 93–119; RESP 16–26; TEMP 97.8–98.3; O2SAT 90–95
[2024-05-30] MEDS ORDERED: magnesium sulf-water 4G/100mL 100 ML IV PRN (00:25)
[2024-05-30] MEDS ORDERED: mag hydrox/Alum hydrox/simeth 30ml oral suspension PO PRN (00:25)
[2024-05-30] MEDS ORDERED: magnesium hydroxide 30ml (MOM) UD suspension PO PRN (00:25)
[2024-05-30] MEDS ORDERED: magnesium Cl slow-release 64mg tablet PO PRN (00:25)
[2024-05-30] MEDS ORDERED: acetaminophen 325mg tablet PO PRN (00:25)
[2024-05-30] MEDS ORDERED: potassium Cl 20 mEq SR tablet PO PRN ×2 (00:25)
[2024-05-30] MEDS ORDERED: potassium Cl 40MEQ/1/2NS 520ml 520 ML IV PRN (00:25)
[2024-05-30] MEDS ORDERED: magnesium sulf-water 2g/50mL 50 ML IV PRN (00:25)
[2024-05-30 00:59] LABS: APTT 25 SECONDS (22-32); PROTHROMBIN TIME 10.9 SECONDS (9.0-12.0)
[2024-05-30 01:05] LABS: PRO BRAIN NATRIURETIC PEPTIDE 237 PG/ML (0-450)
[2024-05-30] MEDS: normal saline 1000ml 1,000 ML IV SCH ×2 (01:14→02:46)
[2024-05-30] MEDS ORDERED: ipratropium/albuterol 3ml nebule NEB PRN (01:15)
[2024-05-30 01:59] LABS: URINE AMPHETAMINE SCREEN NEGATIVE (Neg); URINE BARBITUATE SCREEN NEGATIVE (Neg); URINE BENZODIAZEPINES SCREEN NEGATIVE (Neg); URINE CANNABINOID SCREEN NEGATIVE (Neg); URINE COCAINE SCREEN NEGATIVE (Neg); URINE METHADONE SCREEN NEGATIVE (Neg); URINE OPIATE SCREEN NEGATIVE (Neg); URINE PHENCYCLIDINE SCREEN NEGATIVE (Neg)
[2024-05-30] MEDS ORDERED: piperacillin/tazo 3.375gm/50ml 50 ML IV SCH (02:00)
[2024-05-30] MEDS ORDERED: dextrose 50%-water 50ml dispensing syringe IV PRN ×2 (02:10)
[2024-05-30] MEDS: insulin glargine (Lantus) pen - multi-dose SQ SCH (02:10)
[2024-05-30] MEDS ORDERED: glucagon, human recombinant 1mg kit SUBCUT PRN (02:10)
[2024-05-30] MEDS ORDERED: DEXTROSE 15 GM of carb/4 tabs (each vial/BOTTLE has 4 tablets) PO PRN ×2 (02:10)
[2024-05-30] MEDS: normal saline 1000ml 1,000 ML IV ONE (02:52)
[2024-05-30] MEDS: albuterol 2.5 MG/3 ML nebule NEB SCH (03:38)
[2024-05-30 04:33] LABS: BASOPHILS # (AUTO) 0.1 X10'3 (0-0.2); BASOPHILS % (AUTO) 0.2 % (0-1); EOSINOPHILS % (AUTO) 0 % (0-6); HEMATOCRIT 39.6 % (42.0-52.0); HEMOGLOBIN 13.2 g/dl (14.0-17.9); LYMPHOCYTES # (AUTO) 1.1 X10'3 (1.1-4.8); MEAN CORPUSCULAR HEMOGLOBIN 31.4 PG (27.0-31.0); MEAN CORPUSCULAR HGB CONC 33.3 g/dL (33.0-36.5); MEAN CORPUSCULAR VOLUME 94.3 FL (78-98); MEAN PLATELET VOLUME 8.4 FL (7.4-10.4); MONOCYTES # (AUTO) 2.7 X10'3 (0-0.9); MONOCYTES % (AUTO) 10.2 % (2-12); NEUTROPHILS # (AUTO) 22.9 X10'3 (1.8-7.7); NEUTROPHILS % (AUTO) 85.6 % (42-75); PLATELET COUNT 292 X10'3 (140-440); RED CELL DISTRIBUTION WIDTH 15.7 % (11.5-14.5)
[2024-05-30 04:51] LABS: ALANINE AMINOTRANSFERASE 20 U/L (12-78); ALBUMIN 3.1 G/DL (3.4-5.0); ALBUMIN/GLOBULIN RATIO 0.8 (1.1-1.5); ALKALINE PHOSPHATASE 96 IU/L (46-116); ANION GAP 4 (8-16); ASPARTATE AMINO TRANSFERASE 10 U/L (10-37); BILIRUBIN,TOTAL 0.3 MG/DL (0.1-1.0); BLOOD UREA NITROGEN 29 MG/DL (7-18); BUN/CREATININE RATIO 23.4 (10.0-20.0); CALCIUM 8.7 MG/DL (8.5-10.1); CHLORIDE 105 MMOL/L (99-107); CHOL/HDL RATIO 1.6 (0.00-4.99); CHOLESTEROL 85 MG/DL (0-200); CREATININE 1.24 MG/DL (0.60-1.10); GLUCOSE 156 MG/DL (70-104); HDL CHOLESTEROL 52 MG/DL (35-60); LDL CHOLESTEROL 25 MG/DL (50-100); MAGNESIUM 1.9 MG/DL (1.5-2.4); PHOSPHORUS 3.7 MG/DL (2.3-4.5); POTASSIUM 4.9 MMOL/L (3.5-5.1); SODIUM 140 MMOL/L (135-145); TOTAL CARBON DIOXIDE 30.8 MMOL/L (24-32); TOTAL PROTEIN 6.8 G/DL (6.4-8.2); TRIGLYCERIDES 29 MG/DL (20-135); eCRCL 54 ML/MIN; eGFR 56 ML/MIN
[2024-05-30] MEDS: ondansetron/PF 4mg/2ml inj IV PRN (04:56)
[2024-05-30 04:57] LABS: TOTAL CELLS COUNTED 100
[2024-05-30 05:13] LABS: WHITE BLOOD COUNT 26.7 X10'3 (4.5-11.0)
[2024-05-30 05:25] LABS: APTT 27 SECONDS (22-32); INR 1.1 INR; PROTHROMBIN TIME 11.3 SECONDS (9.0-12.0)
[2024-05-30] MEDS: K and/or MAG REPLACEMENT MC SCH (07:21)
[2024-05-30] MEDS: docusate sod 100mg capsule PO SCH (07:50)
[2024-05-30] MEDS: tamsulosin 0.4mg capsule PO SCH (07:51)
[2024-05-30] MEDS: atorvastatin 20mg tablet PO SCH (07:51)
[2024-05-30] MEDS: aspirin 81mg, enteric-coated 1 TAB TABLET.DR PO SCH (07:51)
[2024-05-30] MEDS: piperacillin/tazo 3.375gm/50ml 50 ML IV SCH (08:51)
[2024-05-30] MEDS: INSULIN LISPRO 100 UNIT/ML INSULN.PEN MULTI-DOSE SQ SCH ×2 (08:51→23:05)
[2024-05-31] VITALS (15 sets, daily range): BP systolic 91–113; BP diastolic 47–59; PULSE 54–110; RESP 15–19; TEMP 97.3–98.8; O2SAT 91–96
[2024-05-31 05:25] LABS: BASOPHILS % (AUTO) 0.3 % (0-1); EOSINOPHILS # (AUTO) 0.1 X10'3 (0-0.9); EOSINOPHILS % (AUTO) 0.7 % (0-6); HEMATOCRIT 31.2 % (42.0-52.0); HEMOGLOBIN 10.6 g/dl (14.0-17.9); LYMPHOCYTES # (AUTO) 1.7 X10'3 (1.1-4.8); MEAN CORPUSCULAR HGB CONC 33.8 g/dL (33.0-36.5); MEAN CORPUSCULAR VOLUME 94.7 FL (78-98); MEAN PLATELET VOLUME 8.2 FL (7.4-10.4); MONOCYTES # (AUTO) 1.2 X10'3 (0-0.9); MONOCYTES % (AUTO) 8.7 % (2-12); NEUTROPHILS # (AUTO) 11.1 X10'3 (1.8-7.7); NEUTROPHILS % (AUTO) 78.3 % (42-75); PLATELET COUNT 219 X10'3 (140-440); RED CELL DISTRIBUTION WIDTH 15.6 % (11.5-14.5); WHITE BLOOD COUNT 14.2 X10'3 (4.5-11.0)
[2024-05-31 05:41] LABS: APTT 30 SECONDS (22-32); INR 1.1 INR; PROTHROMBIN TIME 11.2 SECONDS (9.0-12.0)
[2024-05-31 05:49] LABS: ALANINE AMINOTRANSFERASE 17 U/L (12-78); ALBUMIN 2.7 G/DL (3.4-5.0); ALBUMIN/GLOBULIN RATIO 0.8 (1.1-1.5); ALKALINE PHOSPHATASE 68 IU/L (46-116); ANION GAP 7 (8-16); ASPARTATE AMINO TRANSFERASE 11 U/L (10-37); BILIRUBIN,TOTAL 0.4 MG/DL (0.1-1.0); BLOOD UREA NITROGEN 25 MG/DL (7-18); BUN/CREATININE RATIO 25.8 (10.0-20.0); CALCIUM 8.6 MG/DL (8.5-10.1); CHLORIDE 106 MMOL/L (99-107); CREATININE 0.97 MG/DL (0.60-1.10); GLUCOSE 105 MG/DL (70-104); PHOSPHORUS 3.3 MG/DL (2.3-4.5); POTASSIUM 4.7 MMOL/L (3.5-5.1); SODIUM 142 MMOL/L (135-145); TOTAL CARBON DIOXIDE 29.4 MMOL/L (24-32); eCRCL 57 ML/MIN; eGFR 75 ML/MIN
[2024-05-31] MEDS ORDERED: INSULIN LISPRO 100 UNIT/ML INSULN.PEN MULTI-DOSE SQ SCH (07:00)
[2024-05-31] MEDS: CefTRIAXone 2gm/D5W 50ml BAG 50 ML IV SCH (11:19)
[2024-06-01] VITALS (14 sets, daily range): BP systolic 106–124; BP diastolic 61–70; PULSE 61–98; RESP 16–20; TEMP 97.5–98.3; O2SAT 91–99
[2024-06-01 05:57] LABS: BASOPHILS % (AUTO) 0.4 % (0-1); EOSINOPHILS # (AUTO) 0.2 X10'3 (0-0.9); EOSINOPHILS % (AUTO) 2.1 % (0-6); HEMATOCRIT 30.1 % (42.0-52.0); HEMOGLOBIN 10.2 g/dl (14.0-17.9); LYMPHOCYTES # (AUTO) 1.5 X10'3 (1.1-4.8); LYMPHOCYTES % (AUTO) 15.5 % (21-51); MEAN CORPUSCULAR HEMOGLOBIN 32.3 PG (27.0-31.0); MEAN CORPUSCULAR HGB CONC 33.9 g/dL (33.0-36.5); MEAN CORPUSCULAR VOLUME 95.3 FL (78-98); MEAN PLATELET VOLUME 8.5 FL (7.4-10.4); MONOCYTES # (AUTO) 0.8 X10'3 (0-0.9); MONOCYTES % (AUTO) 8.7 % (2-12); NEUTROPHILS # (AUTO) 7.2 X10'3 (1.8-7.7); NEUTROPHILS % (AUTO) 73.3 % (42-75); PLATELET COUNT 195 X10'3 (140-440); RED BLOOD COUNT 3.16 X10'6 (4.70-6.10); RED CELL DISTRIBUTION WIDTH 15.7 % (11.5-14.5); WHITE BLOOD COUNT 9.8 X10'3 (4.5-11.0)
[2024-06-01 06:08] LABS: APTT 27 SECONDS (22-32); PROTHROMBIN TIME 10.6 SECONDS (9.0-12.0)
[2024-06-01 06:12] LABS: ALANINE AMINOTRANSFERASE 28 U/L (12-78); ALBUMIN 2.6 G/DL (3.4-5.0); ALBUMIN/GLOBULIN RATIO 0.8 (1.1-1.5); ALKALINE PHOSPHATASE 66 IU/L (46-116); ANION GAP 2 (8-16); ASPARTATE AMINO TRANSFERASE 11 U/L (10-37); BILIRUBIN,TOTAL 0.2 MG/DL (0.1-1.0); BLOOD UREA NITROGEN 16 MG/DL (7-18); CALCIUM 8.9 MG/DL (8.5-10.1); CHLORIDE 108 MMOL/L (99-107); CREATININE 0.64 MG/DL (0.60-1.10); GLUCOSE 101 MG/DL (70-104); MAGNESIUM 1.9 MG/DL (1.5-2.4); PHOSPHORUS 3.4 MG/DL (2.3-4.5); POTASSIUM 4.8 MMOL/L (3.5-5.1); SODIUM 142 MMOL/L (135-145); TOTAL CARBON DIOXIDE 31.9 MMOL/L (24-32); TOTAL PROTEIN 5.9 G/DL (6.4-8.2); eCRCL 86 ML/MIN; eGFR > 90 ML/MIN
[2024-06-02 05:41] LABS: BASOPHILS % (AUTO) 0.5 % (0-1); EOSINOPHILS # (AUTO) 0.3 X10'3 (0-0.9); EOSINOPHILS % (AUTO) 3.2 % (0-6); HEMATOCRIT 30.5 % (42.0-52.0); HEMOGLOBIN 10.5 g/dl (14.0-17.9); LYMPHOCYTES # (AUTO) 1.5 X10'3 (1.1-4.8); LYMPHOCYTES % (AUTO) 17.5 % (21-51); MEAN CORPUSCULAR HEMOGLOBIN 32.6 PG (27.0-31.0); MEAN CORPUSCULAR HGB CONC 34.5 g/dL (33.0-36.5); MEAN CORPUSCULAR VOLUME 94.6 FL (78-98); MEAN PLATELET VOLUME 8.2 FL (7.4-10.4); MONOCYTES # (AUTO) 0.8 X10'3 (0-0.9); MONOCYTES % (AUTO) 9.1 % (2-12); NEUTROPHILS # (AUTO) 5.8 X10'3 (1.8-7.7); NEUTROPHILS % (AUTO) 69.7 % (42-75); PLATELET COUNT 216 X10'3 (140-440); RED BLOOD COUNT 3.22 X10'6 (4.70-6.10); RED CELL DISTRIBUTION WIDTH 15.1 % (11.5-14.5); WHITE BLOOD COUNT 8.3 X10'3 (4.5-11.0)
[2024-06-02 05:47] LABS: PROTHROMBIN TIME 10.6 SECONDS (9.0-12.0)
[2024-06-02 05:56] LABS: ALANINE AMINOTRANSFERASE 30 U/L (12-78); ALBUMIN 2.6 G/DL (3.4-5.0); ALBUMIN/GLOBULIN RATIO 0.8 (1.1-1.5); ALKALINE PHOSPHATASE 72 IU/L (46-116); ANION GAP 5 (8-16); ASPARTATE AMINO TRANSFERASE 15 U/L (10-37); BILIRUBIN,TOTAL 0.3 MG/DL (0.1-1.0); BLOOD UREA NITROGEN 12 MG/DL (7-18); BUN/CREATININE RATIO 18.5 (10.0-20.0); CALCIUM 9.1 MG/DL (8.5-10.1); CHLORIDE 109 MMOL/L (99-107); CREATININE 0.65 MG/DL (0.60-1.10); GLUCOSE 107 MG/DL (70-104); MAGNESIUM 1.7 MG/DL (1.5-2.4); PHOSPHORUS 3.5 MG/DL (2.3-4.5); POTASSIUM 5.1 MMOL/L (3.5-5.1); SODIUM 144 MMOL/L (135-145); TOTAL CARBON DIOXIDE 30.3 MMOL/L (24-32); eCRCL 85 ML/MIN; eGFR > 90 ML/MIN
[2024-06-02 06:00] VITALS: BP 106/74; PULSE 61; RESP 17; TEMP 98; O2SAT 92
[2024-06-02 10:00] VITALS: BP 117/58; PULSE 96; RESP 20; TEMP 98.2; O2SAT 94
[2024-06-02 12:17] VITALS: PULSE 102; RESP 16; O2SAT 90
[2024-06-02 12:18] VITALS: PULSE 96; RESP 16
[2024-06-02] MEDS: acetaminophen 325mg tablet PO PRN (13:24)
[2024-06-02] MEDS ORDERED: HYDROcodone/acetaminophen 10/325mg tab PO ONE (15:25)
[2024-06-02] MEDS ORDERED: HYDROcodone/acetaminophen 5mg/325mg tablet PO ONE (16:00)
== END 2024-06-02 15:50 | DRG 871 ==
LOC: ER 21:26 → ED HOLD 05-30 00:29 → ORTHO 4S 05-30 06:02
PROVIDERS: ADMIT Surgery Surgical Critical Care; ATTEND Internal Medicine
DX: A41.9 Sepsis, unspecified organism (principal); J96.20 Acute and chronic respiratory failure, unspecified whether with hypoxia or hypercapnia; N17.0 Acute kidney failure with tubular necrosis; N30.00 Acute cystitis without hematuria; N12 Tubulo-interstitial nephritis, not specified as acute or chronic; J44.1 Chronic obstructive pulmonary disease with (acute) exacerbation; Z20.822 Contact with and (suspected) exposure to COVID-19; I25.10 Atherosclerotic heart disease of native coronary artery without angina pectoris; F03.90 Unspecified dementia, unspecified severity, without behavioral disturbance, psychotic disturbance, mood disturbance, and anxiety; N40.1 Benign prostatic hyperplasia with lower urinary tract symptoms; R73.03 Prediabetes; I10 Essential (primary) hypertension; Z91.048 Other nonmedicinal substance allergy status; Z98.61 Coronary angioplasty status
CPT/HCPCS: 36415; 71045; 74176; 80053; 80061; 80305; 81001; 82948; 83605; 83690; 83735; 83880; 84100; 84145; 84484; 85007; 85025; 85610; 85730; 87040; 87077; 87081; 87088; 87186; 87502; 87503; 87811; 93005; 94640; 94760; 96361; 96365; 96375; 99285; A4314; A5200; G0378; J0696; J1815; J2405; J2543; J7030

== ENCOUNTER 2024-06-13 14:01 | Emergency (ER) | payer OTHER, MEDICARE, MEDICAID ==
[~2024-06-13] VITALS: Ht 182.9 cm; Wt 95.0 kg
[~2024-06-13 14:01] MED LIST changes: +ALB0.5UD NEB; +BUDE10.22 INH; +FLO0.4C PO; +IPRA3AMP31 NEB
[2024-06-13 14:22] VITALS: TEMP 98.8
[2024-06-13] MEDS ORDERED: normal saline 1000ML IV soln IVB ONE (14:25)
[2024-06-13] MEDS: LidoCAINE 2% Topical Jelly 11mL syringe (UROJET) TOP ONE (15:13)
[2024-06-13 15:21] LABS: BILIRUBIN,URINE NEGATIVE (Neg); CLARITY,URINE CLEAR (Clear); COLOR,URINE YELLOW (Yellow); GLUCOSE, URINE NEGATIVE (Neg); KETONES,URINE NEGATIVE (Neg); LEUKOCYTE ESTERASE ,URINE NEGATIVE (Neg); NITRITES, URINE NEGATIVE (Neg); OCCULT BLOOD,URINE TRACE-INTACT (Neg); PROTEIN,URINE NEGATIVE (Neg); UROBILINOGEN,URINE 0.2 E.U/dL (0.2-1.0)
[2024-06-13 15:32] LABS: UA COLLECTION TYPE FOLEY CATH
[2024-06-13 15:37] LABS: BACTERIA,URINE FEW /HPF (Neg); SQUAMOUS EPITHELIAL CELL,UR FEW /LPF (FEW)
[2024-06-13] MEDS: ondansetron/PF 4mg/2ml inj IV ONE (15:53)
[2024-06-13] MEDS: ketorolac trometh 15mg/ml vial 15 MG/ML ML IV ONE (15:53)
[2024-06-13 16:19] LABS: BASOPHILS # (AUTO) 0.1 X10'3 (0-0.2); BASOPHILS % (AUTO) 0.4 % (0-1); EOSINOPHILS # (AUTO) 0.1 X10'3 (0-0.9); EOSINOPHILS % (AUTO) 0.3 % (0-6); HEMATOCRIT 42.8 % (42.0-52.0); HEMOGLOBIN 13.9 g/dl (14.0-17.9); LYMPHOCYTES # (AUTO) 1.2 X10'3 (1.1-4.8); LYMPHOCYTES % (AUTO) 5.8 % (21-51); MEAN CORPUSCULAR HGB CONC 32.5 g/dL (33.0-36.5); MEAN CORPUSCULAR VOLUME 95.3 FL (78-98); MEAN PLATELET VOLUME 8.8 FL (7.4-10.4); MONOCYTES # (AUTO) 1.2 X10'3 (0-0.9); MONOCYTES % (AUTO) 5.7 % (2-12); NEUTROPHILS # (AUTO) 18.7 X10'3 (1.8-7.7); NEUTROPHILS % (AUTO) 87.8 % (42-75); PLATELET COUNT 348 X10'3 (140-440); RED BLOOD COUNT 4.49 X10'6 (4.70-6.10); RED CELL DISTRIBUTION WIDTH 15.3 % (11.5-14.5); WHITE BLOOD COUNT 21.2 X10'3 (4.5-11.0)
[2024-06-13] MEDS ORDERED: CEFU250T95 PO (16:23)
[2024-06-13] MEDS: cephalexin 250mg capsule PO ONE (16:34)
[2024-06-13 17:15] VITALS: BP 109/89; PULSE 90; RESP 19; O2SAT 95
== END 2024-06-13 17:18 | disposition home or self-care (01) ==
LOC: ER 14:01
DX: R33.9 Retention of urine, unspecified (principal); J44.9 Chronic obstructive pulmonary disease, unspecified; N39.0 Urinary tract infection, site not specified; Z88.8 Allergy status to other drugs, medicaments and biological substances
CPT/HCPCS: 36415; 51702; 81001; 85025; 87088; 96374; 96375; 99284; J1885; J2405; A4314

== ENCOUNTER 2025-03-06 17:22 | Emergency (ER) | payer OTHER, MEDICARE, MEDICAID ==
[~2025-03-06 17:22] MED LIST changes: -FLO0.4C PO; +TAMS-55 PO
[2025-03-06 17:34] VITALS: BP 137/63; PULSE 77; RESP 15; TEMP 96.8; O2SAT 99
--- NOTE | 2025-03-06 22:08 | Physician Documentation ---
History of Present Illness ~ Chief Complaint: Urinary Retention Stated Complaint: URINARY RETENTION Time Seen by MD: 21:25 Primary Medical Doctor: unknown HPI This is a 79-year-old male who presents with suprapubic abdominal pain and the inability to urinate, patient was seen by primary care provider and urologist earlier today who drained his bladder with a straight cath and referred patient to the emergency department. Medication Reconciliation Allergies: Coded Allergies: nickel (Verified Adverse Reaction, Unknown, RASH ON SKIN FROM CONTACT, 03/06/25) Scheduled Albuterol Sulfate Nebs* (Proventil Nebs*), 1 VIAL NEB Q4H, (Reported) Aspirin (Aspirin EC), 1 TAB PO DAILY, (Reported) Atorvastatin Calcium* (Lipitor*), 1 TAB PO DAILY, (Reported) Budesonide/Formoterol Fumarate (Symbicort 80-4.5 Mcg Inhaler), 2 PUFFS INH Q12H, (Reported) Carvedilol (Carvedilol), 3.125 MG PO BID Ipratropium/Albuterol Sulfate (Duoneb 2.5-0.5 Mg/3 Ml Soln), 1 VIAL NEB Q12H, (Reported) Lisinopril (Lisinopril), 10 MG PO DAILY Tamsulosin Hcl* (Flomax*), 1 CAP PO DAILY, (Reported) Past Medical History Past Medical History: COPD, *RENAL/*, UTI Past Surgical History: noncontributory Patient History: Pt is a poor historian Drug Use: none Lives In: Home Review of Systems ROS As stated above in the HPI, otherwise all systems are reviewed and negative. Physical Exam Vital Signs: Temperature: 96.8, Source: Temporal, Heart Rate: 77, Respiratory Rate: 15, BP: 137/63, Pulse Oximetry: 99 Physical Exam VITALS: Reviewed and as above. GENERAL: Alert, nontoxic appearing, no apparent distress. RESPIRATORY: No increased work of breathing, no respiratory distress, speaking in full clear sentences GI: Suprapubic tenderness to palpation otherwise abdomen nontender, no rebound, no guarding, bowel sounds present Progress Progress Note I was informed by nursing staff patient had 1100 mL of retained urine in his bladder, Lanza catheter ordered and then placed by nursing staff. After initiation of Lanza catheter injury in his bladder patient reported complete resolution of suprapubic abdominal pain. Results/Orders Results/Orders Completed Orders - JOLANTA THURMAN BRICK SHADER * (A) Lanza- Protocol * Q12H@07,19 (03/06/25 23:21) Ua W/Microscopic, Cult If Ind (03/06/25 23:35) Vital Signs 03/06/25 17:34 Temp 96.8 Pulse 77 Resp 15 B/P (MAP) 137/63 Pulse Ox 99 Laboratory Tests Test 03/06/25 23:35 Urine Specimen Description Lanza cath Urine Color Yellow Urine Clarity Slightly cloudy Urine pH 6.0 Urine Specific [place] >=1.030 Urine Protein 30 H Urine Glucose (UA) Negative Urine Ketones Trace H Urine Occult Blood Large H Urine Nitrite Negative Urine Bilirubin Negative Urine Urobilinogen 0.2 Urine Leukocyte Esterase Negative Urine RBC 20-50 Urine WBC 0-4 Urine Squamous Epithelial Cells None seen Urine Bacteria None seen Urine Mucus None seen Urine Culture Indicated Not ind Volume Urine Centrifuged 10 ml Urine Comment Medical Decision Making Additional information obtaine: N/A Findings This 79-year-old male presented with suprapubic abdominal pain and inability to urinate, bladder scan demonstrated over 1100 mL of retained urine, a Lanza catheter was placed by nursing staff with adequate drainage and patient reported complete resolution of suprapubic abdominal pain, given these findings I suspect suprapubic abdominal pain due to bladder distention and urinary retention. Patient will be discharged with Lanza in place for treatment of acute urinary retention and patient is to follow up with his urologist and primary care provider promptly. Patient is otherwise well-appearing with remainder of physical exam benign and appropriate for outpatient follow up. Urinary Diff Dx:Considerations: Include: Prostatitis, Pyelonephritis, Renal failure, Renal infarction, Strain, Urolithiasis, Urinary Obstruction, Ureth ritis, Urinary retention, UTI Genital Diff Dx:Considerations: Include: Joey's gangrene, Foreign body, Facture penis, Urinary retention, Urethritis, UTI Departure Time of Disposition: 23:26 Disposition: HOME / SELF CARE / HOMELESS Impression: Primary Impression: Acute urinary retention Condition: Improved Discharge Instructions: Acute Urinary Retention, Male Additional Instructions: Please keep the Lanza catheter in until you follow up with your urologist, follow up with your urologist and primary care provider soon as possible. Please follow up with your primary care provider in the next few days. Please return to the emergency department for any new or worsening concerning symptoms. Referrals: NO PRIMARY CARE PROVIDER (PCP) Education Educated: Patient, Family Educated regarding: diagnosis, treatment, prognosis, need for follow up Signature Scribe Signature: No scribe Attestation: The note accurately reflects work and decisions made by me.CECILIA Clayton 03/07/25 02:52 JOLANTA THURMAN Mar 06, 2025 22:08
[2025-03-07 00:43] LABS: LEUKOCYTE ESTERASE ,URINE NEGATIVE (Neg); NITRITES, URINE NEGATIVE (Neg); OCCULT BLOOD,URINE LARGE (Neg)
[2025-03-07 00:54] LABS: UA COLLECTION TYPE FOLEY CATH
[2025-03-07 00:55] LABS: MUCUS STRANDS NONE SEEN /LPF (Neg); SQUAMOUS EPITHELIAL CELL,UR NONE SEEN /LPF (FEW)
== END 2025-03-06 23:46 | disposition home or self-care (01) ==
LOC: ER 17:23
DX: R33.9 Retention of urine, unspecified (principal); J44.9 Chronic obstructive pulmonary disease, unspecified; Z87.440 Personal history of urinary (tract) infections; Z88.8 Allergy status to other drugs, medicaments and biological substances; Z79.899 Other long term (current) drug therapy; Z79.82 Long term (current) use of aspirin
CPT/HCPCS: 81001; 99284; A4314